=== PATIENT | female | born 1960 | race Caucasian/White ===

== ENCOUNTER 2017-04-04 08:11 | Emergency (ER) | payer MEDICAID, OTHER ==
[2017-04-04 08:11] VITALS: BMI 19.7
[2017-04-04 08:18] VITALS: RESP 18
--- NOTE | 2017-04-04 08:42 | C.PDOC ---
History Of Present Illness 56 y/o F c no PMHx p/w cough x 1 week. Reports sputum production, yellow in color. Reports L ear fullness and chest discomfort associated with this cough. Denies fever, vomiting, swelling, recent travel, any medication use. Time Seen by Provider: 04/04/17 08:22 Chief Complaint (Nursing): Cough, Cold, Congestion Past Medical History Vital Signs: Last Vital Signs Temp 98.5 F 04/04/17 08:16 Pulse 80 04/04/17 08:16 Resp 18 04/04/17 08:16 BP 146/82 04/04/17 08:16 Pulse Ox 99 04/04/17 08:47 - Medical History PMH: Denies: Chronic Kidney Disease - [facility] Procedures COLONOSCOPY (07/07/14) Family History: States: Unknown Family Hx - Social History Hx Alcohol Use: No Hx Substance Use: No Review Of Systems Except As Marked, All Systems Reviewed And Found Negative. Constitutional: Negative for: Fever Respiratory: Negative for: Shortness of Breath Physical Exam - Physical Exam Additional Physical Exam Comments: Constitutional: No acute distress. Head: Normocephalic. Atraumatic. Eyes: PERRL. ENT: Moist mucous membranes. L ear dullness. Neck: Supple. Cardiovascular: Regular rate. Radial pulses 2+ bilaterally. Chest: No tenderness. Respiratory: Clear to auscultation bilaterally. GI: Soft. Nontender. Nondistended. Back: No CVA tenderness. Musculoskeletal: No tenderness or swelling of extremities. Skin: No rash. Neurologic: Alert, no focal deficit. ED Course And Treatment O2 Sat by Pulse Oximetry: 99 Medical Decision Making Medical Decision Making: Viral URI most likely diagnosis but with prolonged course and not improving. Will obtain CXR and if negative, discharge on Azithromycin to cover bacterial bronchitis vs otitis media. CXR no acute disease as read by me. Disposition - Disposition Disposition: HOME/ ROUTINE Disposition Time: 08:53 Condition: STABLE Prescriptions: Azithromycin [Zithromax] 2 tab PO DAILY #6 tab Instructions: Upper Respiratory Infection (ED) Forms: [employer] (Hungarian) - Clinical Impression Clinical Impression: Upper respiratory infection - Scribe Statement The provider has reviewed the documentation as recorded by the Khalifibe Dora Mendes All medical record entries made by the Scribe were at my direction and personally dictated by me. I have reviewed the chart and agree that the record accurately reflects my personal performance of the history, physical exam, medical decision making, and the department course for this patient. I have also personally directed, reviewed, and agree with the discharge instructions and disposition.
[2017-04-04 08:58] VITALS: BP 140/78; PULSE 84; TEMP 98.6; O2SAT 100
--- NOTE | 2017-04-04 09:44 | RAD ---
HISTORY: cough COMPARISON: None available. TECHNIQUE: Chest PA and lateral FINDINGS: LUNGS: No focal consolidation. 12 mm nodular density at the left lower lobe appears, likely nipple shadow. Please note that chest x-ray has limited sensitivity for the detection of pulmonary masses. PLEURA: No significant pleural effusion identified. No definite pneumothorax . CARDIOVASCULAR: Heart size appears within normal limits. OSSEOUS STRUCTURES: No acute osseous abnormality identified. VISUALIZED UPPER ABDOMEN: Unremarkable. OTHER FINDINGS: None. IMPRESSION: No acute findings. See above.
== END 2017-04-04 08:57 | disposition home or self-care (01) ==
LOC: C.ER 08:11
DX: J06.9 Acute upper respiratory infection, unspecified (principal)